=== PATIENT | male | born 1990 | race Caucasian/White ===

== ENCOUNTER 2023-11-10 17:03 | Emergency (ER) | payer OTHER, SELFPAY ==
--- NOTE | ~2023-11-10 | CT_ITS ---
EXAMINATION: CT head/brain wo IV con CLINICAL INFORMATION: Reason for Exam HTN, headache COMPARISON: None. TECHNIQUE: Contiguous axial imaging was performed from the skull base to vertex without intravenous contrast. Sagittal and coronal reformatted images were obtained. This CT examination was performed using dose optimization techniques as appropriate, variously including the following: * Automated exposure control * Adjustment of mA and/or kV according to patient size (this includes techniques or standardized protocols for targeted exams where dose is matched to indication/reason for exam; i.e. extremities or head) Use of iterative reconstruction technique DLP: 941.94 mGy-cm FINDINGS: No acute osseous or soft tissue abnormality. The mastoids are clear. Scattered mucosal thickening of the visualized paranasal sinuses, most prominently involving the right sphenoid sinus. There is no evidence of acute intracranial hemorrhage or territorial infarction. No abnormal mass effect or midline shift is seen. [place] to white matter differentiation is well preserved. No extra-axial fluid collections are identified. No hydrocephalus. No significant volume loss. There is no abnormal attenuation within the brain parenchyma. CT/CT head/brain wo IV con IMPRESSION: No acute intracranial abnormality including hemorrhage, mass effect, hydrocephalus, or acute territorial edematous infarction.
--- NOTE | ~2023-11-10 | XR_ITS ---
EXAMINATION: XR CHEST CLINICAL INFORMATION: Chest pain COMPARISON: None available. TECHNIQUE: 2 views of the chest were obtained. FINDINGS: No significant abnormality is noted involving the heart, lungs, mediastinum, bony thorax or soft tissues. XR/XR chest 2V IMPRESSION: Unremarkable examination.
[2023-11-10 17:35] VITALS: BP 181/115; PULSE 97; RESP 16; TEMP 37.2; O2SAT 95; BMI 47.5
--- NOTE | 2023-11-10 17:37 | ED_ITS ---
HPI - URI/Sore Throat General Chief Complaint: Upper Respiratory Symptoms Stated Complaint: referred by for chest xray, high BP Time Seen by Provider: 11/10/23 18:14 Source: patient, RN notes reviewed and old records reviewed Mode of arrival: ambulatory Limitations: no limitations History of Present Illness HPI Narrative: 33-year-old male with past medical history significant for insulin-dependent diabetes presents for evaluation of flu-like symptoms. He complains of headache, cough, congestion and left ear pain for the last 2 or 3 days He denies any sick contacts pain Denies any recent travel The patient reports he went to urgent care and they told him he had a left ear infection He was sent for a chest x-ray but ?when I got so I came here instead. ? Denies any leg swelling He is associated nausea without vomiting No other complaints or concerns at this time The patient's smokes both marijuana and tobacco Related Data Previous Rx's Medication Instructions Recorded albuterol sulfate 90 mcg/actuation 2 puff inhalation Q6H PRN 11/10/23 aerosol inhaler shortness of breath or wheezing #8.5 grams azithromycin 250 mg tablet See Rx Instructions PO .COMPLEX #6 11/10/23 tabs metformin 1,000 mg tablet 1,000 mg PO BID #60 tabs 11/10/23 Allergies Allergy/AdvReac Type Severity Reaction Status Date / Time No Known Allergies Allergy Verified 11/10/23 17:35 Review of Systems 2 Constitutional: Constitutional: Reports body ache(s), Denies chills, Denies fever(s) and Reports headache(s) Eyes: Eyes: Denies blurry vision ENT: Reports headache(s) and Denies sore throat Cardiovascular: Cardiovascular: Denies chest pain and Reports dyspnea Respiratory: Respiratory: Reports chest congestion, Reports cough and Reports dyspnea Gastrointestinal: Gastrointestinal: Reports abdominal pain, Denies diarrhea, Reports nausea and Denies vomiting Musculoskeletal: Musculoskeletal: Denies back pain Integumentary/Breasts: Skin/Breast: Denies rash Neurologic: Reports headache(s) PMF Social History Social History Smoked in Last 30 Days: No Use of substances other than those prescribed or required for medical reasons: Yes Substance Use Type: Marijuana Advance Directives: No Advance Directives Information Provided: No Physical Exam 2 Vital Signs: Vital Signs: Last Vital Signs Temp 97.8 F 03/27/24 20:48 Pulse 96 11/10/23 20:48 Resp 14 11/10/23 20:48 BP 144/80 H 11/10/23 20:48 Pulse Ox 96 11/10/23 20:48 O2 Del Method Room Air 11/10/23 20:48 BMI result Body Mass Index 47.5 Const: General: healthy appearing, comfortable, no acute distress, alert and awake Nutritional Appearance: well nourished Orientation/consciousness: p atient oriented x3 HEENT: Head: Yes normocephalic and Yes atraumatic Ears: TM's normal bilaterally and EAC's normal Eyes: Eyelids: Yes eyelids normal Conjunctivae: conjunctivae normal S clerae: sclerae normal Corneas: corneas normal Pupils: Equal, round and reactive pupils present EOM: EOMs intact bilaterally Neck: Neck: Yes full ROM Resp: Other: Diffuse expiratory wheeze Effort & Inspection: normal respiratory effort, able to speak in complete sentences and not labored Auscultation: not clear to auscultation bilaterally Cardio: Rate: regular rate Rhythm: regular rhythm GI: Inspection: No distended Palpation (GI): Soft to palpation, not firm, nontender, no guarding and not rigid Skin: General skin exam: elasticity normal Neuro: General: patient oriented x3 Cranial nerves: Yes Equal, round and reactive pupils present and Yes Bilaterally intact EOM present Cognition (Neuro): normal cognition Course Course Course Narrative: This is an RME: Additional HPI, ROS, PE not included below will be deferred to primary provider. This is a [id number], with a hx of diabetes, presenting to the emergency department with complaint of cough, congestion x 1 day. Patient reporting severe headache. Blood pressure elevated at 181/115, and 172/121. Patient is a diabetic, does not check his sugars at home. Plan: Labs, EKG, chest x-ray, viral swabs, CT head Reevaluation(s) Reevaluation #1: Feeling better after breathing treatment. His glucose improved to 45. His blood pressure improved to 144/80. The patient reports that he is supposed to be on metformin and insulin has been off them for 8 months since he was released from incarceration. He reports he will follow-up with his PCP calling tomorrow. I will refill his metformin for a month. We will treat his upper respiratory infection with azithromycin and albuterol inhaler. This will cover any otitis media though clinically I do not feel the patient has otitis media Time: 20:56 Medications Administered Discontinued Medications Generic Name Dose Route Start Last Admin Trade Name Cici PRN Reason Stop Dose Admin Albuterol Sulfate 7.5 mg/ 10 mg 11/10/23 19:55 11/10/23 20:05 Albuterol Sulfate 2.5 mg INHALE 11/10/23 19:56 10 mg ONCE ONE Administration Sodium Chloride 1,000 mls @ 999 mls/hr 11/10/23 19:15 11/10/23 19:39 Ns IV 11/10/23 20:15 999 mls/hr .Q1H1M MURPHY Administration Insulin Human Regular 5 unit 11/10/23 19:12 11/10/23 19:38 Insulin Regular, Human 100 Unit/Ml 3 Ml Vial IVPUSH 11/10/23 19:13 5 unit ONCE ONE Administration Medical Decision Making Medical Decision Making [facility] Narrative: 33-year-old male presents for evaluation of flu-like symptoms. He is not septic, plan for labs, chest x-ray, viral swabs to rule out pneumonia. He is wheezy on exam, his oxygen saturation is 90-94% on room air. Plan for bronchodilator protocol. Patient's glucose is elevated to 363 without evidence of DKA. CT scan of the head ordered in triage due to his complaints of headache. He has no neuro deficits Differential Diagnosis Differential Diagnoses: The differential diagnosis associated with the presentation includes Influenza Viral syndrome Pneumonia Bronchitis Otitis media Otitis externa Lab Data [facility] Lab Attestation statement: I reviewed the patient's lab results. No leukocytosis or anemia. Normal platelet count. No electrolyte abnormalities. Isolated hyperglycemia without evidence of DKA 11/10/23 18:45 11/10/23 18:45 Labs: Lab Results 11/10/23 11/10/23 11/10/23 Range/Units 18:45 18:47 18:48 WBC 6.3 (4.8-10.8) X10*3/uL RBC 5.40 (4.60-5.80) X10*6/uL Hgb 16.0 (14.0-18.0) g/dl Hct 45.9 (42.0-52.0) % MCV 85.0 (80.0-98.0) fL MCH 29.6 (27.0-33.0) pg MCHC 34.9 (31.0-36.0) g/dl RDW 12.6 (11.0-16.0) % Plt Count 265 (160-400) X10*3/uL MPV 11.0 (9.4-12.4) fL Immature Gran % (Auto) 0.2 (0.0-0.4) % Neut % (Auto) 56.2 (45-73) % Lymph % (Auto) 30.5 (20-40) % Treasure % (Auto) 8.3 (2-11) % Eos % (Auto) 4.0 (0-4) % Baso % (Auto) 0.8 (0-2) % Lymph # (Auto) 1.9 (1.2-4.9) X10*3/uL Treasure # (Auto) 0.5 (0.1-1.2) X10*3/uL Eos # (Auto) 0.3 (0.0-0.4) X10*3/uL Baso # (Auto) 0.1 (0.0-0.2) X10*3/uL Abs Immat Gran (auto) 0.01 (0.00-0.03) X10*3/uL Absolute Neuts (auto) 3.6 (2.0-8.3) x10*3/uL Absolute Nucleated RBC 0.000 (0.0-0.012) X10*3/uL Nucleated RBC % (auto) 0.0 (0.0-0.2) /100WBC VBG pH 7.42 (7.32-7.43) VBG pCO2 47 mmHg VBG pO2 58 mmHg VBG HCO3 31 H (22-26) mmol/L VBG O2 Saturation 90.0 % VBG Base Excess 5.5 mmol/L Sodium 135 (135-145) mmol/L Potassium 3.5 (3.3-5.1) mmol/L Chloride 100 (96-108) mmol/L Carbon Dioxide 26 (22-29) mmol/L Anion Gap 13 (12-20) BUN 10 (9-16) mg/dL Creatinine 0.76 (0.5-1.4) mg/dL Estim Creat Clear Calc 211.1 Estimated GFR > 60 POC Glucose 334 H (60-115) mg/dL Random Glucose 363 H* (60-115) mg/dL Calcium 9.3 (8.4-10.2) mg/dL Magnesium 1.9 (1.6-2.6) mg/dL Total Bilirubin 0.8 (0.0-1.0) mg/dL Direct Bilirubin 0.2 (0.0-0.5) mg/dL AST 9 (5-37) U/L ALT 13 (0-40) U/L Alkaline Phosphatase 40 (39-117) U/L Troponin I High Sens 3.6 (<3.5-35.0) ng/L Total Protein 6.7 (6.5-8.0) g/dL Albumin 3.7 (3.5-5.0) g/dL Lipase 9 (8-78) U/L Beta-Hydroxybutyrate 0.23 (0.02-0.27) mmol/L Influenza Type A (PCR) NEGATIVE (Negative) Influenza Type B (PCR) NEGATIVE (Negative) RSV RNA Qual (PCR) NEGATIVE (Negative) SARS-CoV-2 RNA (RT-PCR) NEGATIVE (Negative) 11/10/23 Range/Units 20:51 WBC (4.8-10.8) X10*3/uL RBC (4.60-5.80) X10*6/uL Hgb (14.0-18.0) g/dl Hct (42.0-52.0) % MCV (80.0-98.0) fL MCH (27.0-33.0) pg MCHC (31.0-36.0) g/dl RDW (11.0-16.0) % Plt Count (160-400) X10*3/uL MPV (9.4-12.4) fL Immature Gran % (Auto) (0.0-0.4) % Neut % (Auto) (45-73) % Lymph % (Auto) (20-40) % Treasure % (Auto) (2-11) % Eos % (Auto) (0-4) % Baso % (Auto) (0-2) % Lymph # (Auto) (1.2-4.9) X10*3/uL Treasure # (Auto) (0.1-1.2) X10*3/uL Eos # (Auto) (0.0-0.4) X10*3/uL Baso # (Auto) (0.0-0.2) X10*3/uL Abs Immat Gran (auto) (0.00-0.03) X10*3/uL Absolute Neuts (auto) (2.0-8.3) x10*3/uL Absolute Nucleated RBC (0.0-0.012) X10*3/uL Nucleated RBC % (auto) (0.0-0.2) /100WBC VBG pH (7.32-7.43) VBG pCO2 mmHg VBG pO2 mmHg VBG HCO3 (22-26) mmol/L VBG O2 Saturation % VBG Base Excess mmol/L Sodium (135-145) mmol/L Potassium (3.3-5.1) mmol/L Chloride (96-108) mmol/L Carbon Dioxide (22-29) mmol/L Anion Gap (12-20) BUN (9-16) mg/dL Creatinine (0.5-1.4) mg/dL Estim Creat Clear Calc Estimated GFR POC Glucose 245 H (60-115) mg/dL Random Glucose (60-115) mg/dL Calcium (8.4-10.2) mg/dL Magnesium (1.6-2.6) mg/dL Total Bilirubin (0.0-1.0) mg/dL Direct Bilirubin (0.0-0.5) mg/dL AST (5-37) U/L ALT (0-40) U/L Alkaline Phosphatase (39-117) U/L Troponin I High Sens (<3.5-35.0) ng/L Total Protein (6.5-8.0) g/dL Albumin (3.5-5.0) g/dL Lipase (8-78) U/L Beta-Hydroxybutyrate (0.02-0.27) mmol/L Influenza Type A (PCR) (Negative) Influenza Type B (PCR) (Negative) RSV RNA Qual (PCR) (Negative) SARS-CoV-2 RNA (RT-PCR) (Negative) Independent Interpretation I performed an independent interpretation of an: Plain X-Ray (No infiltrates, effusions or pneumothorax) and CT Scan (Agree with Radiology interpretation, no acute intracranial abnormality) Radiology Impression Discussion of test interpretation with radiology: I have reviewed the radiologist's reading. (CT brain no acute intracranial abnormality) Radiologist Impression: Chest x-ray is unremarkable Discharge Plan Discharge Clinical Impression: Upper respiratory infection, Acute hyperglycemia Patient Disposition: Home, Self-Care Instructions: Upper Respiratory Infection (ED), Diabetic Hyperglycemia (ED) Prescriptions: New azithromycin 250 mg tablet See Rx Instructions .ROUTE .COMPLEX Qty: 6 0RF Rx Instructions: For 250 mg dose pack: take 500 mg today (day 1), then 250 mg for 4 days (days 2-5) albuterol sulfate 90 mcg/actuation HFA aerosol inhaler 2 puff inhalation Q6H PRN (Reason: shortness of breath or wheezing) Qty: 8.5 0RF metformin 1,000 mg tablet 1,000 mg PO BID Qty: 60 0RF
--- NOTE | 2023-11-10 17:40 | ECG_ITS ---
Test Reason : COUGH Blood Pressure : / mmHG Vent. Rate : 082 BPM Atrial Rate : 082 BPM P-R Int : 168 ms QRS Dur : 104 ms QT Int : 384 ms P-R-T Axes : 029 -07 004 degrees QTc Int : 448 ms Normal sinus rhythm Normal ECG No previous ECGs available Referred By: Maureen Wayne Electronically Signed By:James Hernandez
[2023-11-10 17:41] VITALS: BP 172/121
[2023-11-10 18:06] VITALS: BP 157/111; PULSE 84; RESP 18; TEMP 37; O2SAT 95
[2023-11-10 18:49] LABS: MANUAL DIFF FLAG NO
[2023-11-10 18:52] LABS: Basophils Absolute Auto 0.1 X10*3/uL (0.0-0.2); Basophils Percent Auto 0.8 % (0-2); Eosinophils Absolute Auto 0.3 X10*3/uL (0.0-0.4); Hematocrit 45.9 % (42.0-52.0); Imm Gran Abs Auto 0.01 X10*3/uL (0.00-0.03); Imm Gran Pct Auto 0.2 % (0.0-0.4); Lymphocytes Absolute Auto 1.9 X10*3/uL (1.2-4.9); Lymphocytes Percent Auto 30.5 % (20-40); Mean Corpuscular HGB Conc 34.9 g/dl (31.0-36.0); Mean Corpuscular Hemoglobin 29.6 pg (27.0-33.0); Monocytes Absolute Auto 0.5 X10*3/uL (0.1-1.2); Monocytes Percent Auto 8.3 % (2-11); Neutrophils Absolute Auto 3.6 x10*3/uL (2.0-8.3); Neutrophils Percent Auto 56.2 % (45-73); Platelet Count 265 X10*3/uL (160-400); Red Cell Distribution Width 12.6 % (11.0-16.0); White Blood Count 6.3 X10*3/uL (4.8-10.8)
[2023-11-10 18:53] LABS: Glucose, Whole Blood 334 mg/dL (60-115)
[2023-11-10 18:54] LABS: VBG Base Excess 5.5 mmol/L; VBG HCO3 31 mmol/L (22-26); VBG pCO2 47 mmHg; VBG pH 7.42 (7.32-7.43); VBG pO2 58 mmHg
[2023-11-10 19:03] LABS: Venous Blood Gas Refer to POC result
[2023-11-10 19:11] LABS: Alanine Aminotransferase 13 U/L (0-40); Albumin Level 3.7 g/dL (3.5-5.0); Alkaline Phosphatase 40 U/L (39-117); Anion Gap 13 (12-20); Aspartate Amino Transferase 9 U/L (5-37); Bilirubin Direct 0.2 mg/dL (0.0-0.5); Bilirubin Total 0.8 mg/dL (0.0-1.0); Blood Urea Nitrogen 10 mg/dL (9-16); Calcium 9.3 mg/dL (8.4-10.2); Carbon Dioxide 26 mmol/L (22-29); Chloride 100 mmol/L (96-108); Creatinine Clr Calc Pharmacy 211.1; Estimated Glomerular Filt Rate > 60; Glucose Random 363 mg/dL (60-115); Lipase 9 U/L (8-78); Magnesium 1.9 mg/dL (1.6-2.6); Potassium 3.5 mmol/L (3.3-5.1); Sodium 135 mmol/L (135-145); Total Protein 6.7 g/dL (6.5-8.0)
[2023-11-10 19:13] LABS: Troponin-I High Sensitivity 3.6 ng/L (<3.5-35.0)
[2023-11-10 19:25] LABS: Beta-Hydroxybutyrate 0.23 mmol/L (0.02-0.27)
[2023-11-10 19:35] LABS: Influenza A PCR NEGATIVE (Negative); Influenza B PCR NEGATIVE (Negative); Resp Syncy Virus RNA Qual PCR NEGATIVE (Negative); SARS COV2 PCR INHOUSE NEGATIVE (Negative)
[2023-11-10] MEDS: Insulin Regular, Human 100 UNIT/ML 3 ML VIAL IVPUSH (19:38)
[2023-11-10] MEDS: 0.9 % Sodium Chloride 1,000 ML 999 ML IV (19:39)
[2023-11-10] MEDS: Albuterol Sulfate 7.5 MG, Albuterol Sulfate (0.083%) 2.5 MG 10 MG INHALE (20:05)
[2023-11-10 20:48] VITALS: BP 144/80; PULSE 96; RESP 14; TEMP 36.6; O2SAT 96
[2023-11-10 20:54] LABS: Glucose, Whole Blood 245 mg/dL (60-115)
--- NOTE | 2023-11-10 20:58 | PC.NURSE ---
this rn assumed care of pt @ 1900. pt calm and cooperative medicated according to mar disposition pending
--- NOTE | 2023-11-10 21:08 | PC.NURSE ---
pt partner present at bedside. iv removed prior to discharge pt calm and cooperative. pt provided with discharge packet pt verbalized understanding of discharge plan.
[2023-11-10 21:10] VITALS: BP 144/80; PULSE 96; RESP 14; TEMP 36.6; O2SAT 96
== END 2023-11-10 21:11 | disposition home or self-care (01) ==
PROVIDERS: Physician Assistant Medical; Emergency Provider Emergency Medicine
DX: R51.9 Headache, unspecified (principal); R05.9 Cough, unspecified; R09.81 Nasal congestion; H92.02 Otalgia, left ear; J06.9 Acute upper respiratory infection, unspecified; E11.65 Type 2 diabetes mellitus with hyperglycemia; Z79.4 Long term (current) use of insulin
CPT/HCPCS: 0241U; 36415; 70450; 71046; 80048; 80076; 82010; 82803; 82947; 83690; 83735; 84484; 85025; 93005; 96361; 96374; 99284

== ENCOUNTER → 2023-11-10 17:40 | Outpatient (BNV) | payer OTHER, SELFPAY | PROVIDERS: Emergency Provider Emergency Medicine; Visit Provider Internal Medicine Cardiovascular Disease | DX: R94.31 Abnormal electrocardiogram [ECG] [EKG] (principal) | CPT/HCPCS: 93010 ==

== ENCOUNTER 2024-02-05 13:02 | Emergency (ER) | payer OTHER, SELFPAY ==
[2024-02-05 13:04] VITALS: BP 185/111; PULSE 72; RESP 19; TEMP 36.6; O2SAT 99; BMI 45.7
--- NOTE | 2024-02-05 13:04 | ED.GENADULT ---
HPI - General Adult General Chief complaint: Dizziness Stated complaint: blurred vission headache Time Seen by Provider: 02/05/24 15:00 Source: patient and family Mode of arrival: ambulatory Limitations: no limitations History of Present Illness ED Provider: Bhavna Dorman APRN HPI narrative: 33 yo male with history of both diabetes and hypertension who has been non med compliant for over one year presents to the ER with blurry vision bilaterally and headache x 3 days. Took blood pressure at home and it was elevated. No chest pain, shortness of breath, vomiting, diarrhea, neck pain, neck stiffness, weakness /numbness / tingling of the upper lower extremities, dizziness. Patient reports he does not currently have a primary care doctor. Related Data Previous Rx's ?Medication ?Instructions ?Recorded albuterol sulfate 90 mcg/actuation 2 puff inhalation Q6H PRN 11/10/23 aerosol inhaler shortness of breath or wheezing #8.5 grams azithromycin 250 mg tablet See Rx Instructions PO .COMPLEX #6 11/10/23 tabs metformin 1,000 mg tablet 1,000 mg PO BID #60 tabs 11/10/23 Allergies Allergy/AdvReac Type Severity Reaction Status Date / Time No Known Allergies Allergy Verified 02/05/24 13:07 Review of Systems Review of Systems: Yes all other systems are reviewed and are negative Constitutional: Constitutional: Reports no additional constitutional complaints, Denies body ache(s), Denies chills, Denies fever(s), Reports headache(s) and Denies weakness Eyes: Eyes: Reports no additional eye complaints, Reports blurry vision and Denies change in vision ENT: Reports system reviewed and no additional complaints, except as documented, Denies dizziness, Reports headache(s), Denies nasal congestion, Denies nasal discharge and Denies neck pain Cardiovascular: Cardiovascular: Reports no additional cardiovascular complaints, Denies chest pain, Denies leg edema and Denies dyspnea Respiratory: Respiratory: Reports no additional respiratory complaints, Denies cough and Denies dyspnea Gastrointestinal: Gastrointestinal: Reports no additional gastrointestinal complaints, Denies abdominal pain, Denies diarrhea, Denies nausea and Denies vomiting Genitourinary: Genitourinary: Denies urinary incontinence Musculoskeletal: Musculoskeletal: Reports no additional musculoskeletal complaints, Denies back pain, Denies arthralgias, Denies joint swelling, Denies neck pain, Denies numbness and Denies tingling Integumentary/Breasts: Skin/Breast: Reports system reviewed and no additional complaints, except as docu and Denies rash Neurologic: Reports system reviewed and no additional complaints, except as documented, Denies Abnormal speech present, Denies dizziness, Reports headache(s), Denies numbness, Denies tingling and Denies weakness PMFSH Past Medical History Attestation statement: The following information was validated with the patient. Source: old records reviewed and nursing notes reviewed Social History Social History Substance Use Type: Marijuana Advance Directives: No Advance Directives Information Provided: No Physical Exam ED Vital Signs: Vital Signs - 24 hr 02/05/24 13:04 Temperature 98 F Pulse Rate 72 Respiratory Rate 19 Blood Pressure 185/111 H Pulse Oximetry 99 Oxygen Delivery Method Room Air BMI result Body Mass Index 45.7 Const General: cooperative, healthy appearing, comfortable and no acute distress Orientation/consciousness: patient oriented x3 Limitations: no limitations HENMT Head: Yes normal to inspection Ears: hearing grossly normal bilaterally General nose exam: Normal external nose present Face and sinus: Yes normal facial exam Mouth: Normal oral and palatal mucosa present Throat: Yes posterior oropharynx normal Eyes General: appearance normal, both eyes and all related structures Pupils: Equal, round and reactive pupils present Neck Neck: Yes normal visual inspection Chest Chest palpation & inspection: normal inspection of the chest Resp Effort & Inspection: normal respiratory effort Auscultation: clear to auscultation bilaterally Cardio Rate: regular rate Rhythm: regular rhythm Peripheral pulses: Peripheral pulses 2+ throughout GI Inspection: Yes normal to inspection Palpation (GI): Soft to palpation and nontender Auscultation: normal bowel sounds Back/Spine/Pelvis Thoracic/Lumbar Spine: thoracic and lumbar spine normal to inspection Skin General skin exam: no rashes or lesions noted Neuro General: patient oriented x3, moves all extremities, no focal motor deficits and normal sensation to monofilament Cranial nerves: Yes CN's II-XII intact bilaterally, Yes Equal, round and reactive pupils present, Yes Bilaterally intact EOM present, Yes Nystagmus not present, Yes Normal facial strength present and Yes Midline tongue present Cognition (Neuro): normal cognition Speech: No Abnormal speech present Gait exam (Neuro): Normal gait present Motor exam (neuro): 5/5 motor strength present throughout Sensory Exam: Normal double simultaneous stimulation for sensation Extrem General: Yes normal to inspection, Yes no pedal edema and Yes no calf tenderness Course Course Course Narrative: This is a rapid medical exam performed by Jaycee Malik NP: Additional HPI, ROS, PE not included below will be deferred to primary provider. Patient is a 33-year-old male with history of HTN not on medication presenting to the ED with 3 days of blurred vision, headache and high BP readings at home (170/120). BP in triage 185/111. Plan: EKG, labs, visual acuity Reevaluation(s) Reevaluation #1: about 15 minutes after I saw the patient he was noted to walk out of the emergency room with a steady gait with his partner. Patient eloped Medical Decision Making Medical Decision Making [facility] Narrative: 33 yo male with history of both diabetes and hypertension who has been non med compliant for over one year presents to the ER with blurry vision bilaterally and headache x 3 days. Took blood pressure at home and it was elevated. No chest pain, shortness of breath, vomiting, diarrhea, neck pain, neck stiffness, weakness /numbness / tingling of the upper lower extremities, dizziness. Patient reports he does not currently have a primary care doctor. The patient had an EKG and labs from triage. I did review these. His EKG is nonischemic however his labs show a blood sugar of 515 with no evidence of DKA. He is quite hypertensive with a blood pressure of 180/110. he has a nonfocal neurological exam. His other vitals are stable. I do believe his blurry vision and headache are secondary to his uncontrolled blood sugars and blood pressure. This is secondary to medication noncompliance. Explained to the patient that we will need to get additional labs, we may need additional imaging. We will need to place an IV and give him IV fluids, insulin and a oral antihypertensive. If his blood pressure and blood sugar improved he can be discharged home on oral medications of with assistance from social work to establish primary care. Differential Diagnosis Differential Diagnoses: The differential diagnosis associated with the presentation includes Hypertensive urgency, hyperglycemia secondary to medication noncompliance Admission/Observation Consideration of admission/observation: Escalation of care including admission/observation considered Lab Data [facility] Lab Attestation statement: I reviewed the patient's lab results. 02/05/24 13:24 02/05/24 13:24 Labs: Lab Results 02/05/24 02/05/24 Range/Units 13:24 13:27 WBC 6.9 (4.8-10.8) X10*3/uL RBC 5.12 (4.60-5.80) X10*6/uL Hgb 15.4 (14.0-18.0) g/dl Hct 43.8 (42.0-52.0) % MCV 85.5 (80.0-98.0) fL MCH 30.1 (27.0-33.0) pg MCHC 35.2 (31.0-36.0) g/dl RDW 12.6 (11.0-16.0) % Plt Count 240 (160-400) X10*3/uL MPV 11.3 (9.4-12.4) fL Immature Gran % (Auto) 0.3 (0.0-0.4) % Neut % (Auto) 56.4 (45-73) % Lymph % (Auto) 33.0 (20-40) % [place] % (Auto) 5.5 (2-11) % Eos % (Auto) 3.9 (0-4) % Baso % (Auto) 0.9 (0-2) % Lymph # (Auto) 2.3 (1.2-4.9) X10*3/uL [place]eves # (Auto) 0.4 (0.1-1.2) X10*3/uL Eos # (Auto) 0.3 (0.0-0.4) X10*3/uL Baso # (Auto) 0.1 (0.0-0.2) X10*3/uL Abs Immat Gran (auto) 0.02 (0.00-0.03) X10*3/uL Absolute Neuts (auto) 3.9 (2.0-8.3) x10*3/uL Absolute Nucleated RBC 0.000 (0.0-0.012) X10*3/uL Nucleated RBC % (auto) 0.0 (0.0-0.2) /100WBC PT 10.3 L (11.1-13.3) SEC INR 0.8 L (0.9-1.1) Sodium 135 (135-145) mmol/L Potassium 4.2 (3.3-5.1) mmol/L Chloride 99 (96-108) mmol/L Carbon Dioxide 27 (22-29) mmol/L Anion Gap 13 (12-20) BUN 10 (9-16) mg/dL Creatinine 0.91 (0.5-1.4) mg/dL Estim Creat Clear Calc 177.4 Estimated GFR > 60 Random Glucose 515 H* (60-115) mg/dL Calcium 8.9 (8.4-10.2) mg/dL Total Bilirubin 0.5 (0.0-1.0) mg/dL AST 8 (5-37) U/L ALT 12 (0-40) U/L Alkaline Phosphatase 63 (39-117) U/L Troponin I High Sens 2.9 (<3.5-35.0) ng/L Total Protein 6.1 L (6.5-8.0) g/dL Albumin 3.4 L (3.5-5.0) g/dL Urine Color Yellow Urine Appearance Clear Urine pH 6.5 (5.0-9.0) Ur Specific [place] >= 1.030 H (1.005-1.025) Urine Protein Negative (Neg-Trace) mg/dL Urine Glucose (UA) >=1000 H (Negative) mg/dL Urine Ketones Negative (Negative) mg/dL Urine Blood Negative (Negative) Urine Nitrite Negative (Negative) Ur Leukocyte Esterase Negative (Negative) Urine RBC 0-2 (0-2) /HPF Urine WBC 0-5 (0-5) /HPF Ur Squamous Epith Cells 0-2 (0-2) /HPF Urine Bacteria None Seen (None Seen) Hyaline Casts 0-2 (0-2) /LPF Independent Interpretation I performed an independent interpretation of an: EKG Interpretation: I independently viewed EKG which shows normal sinus rhythm with a rate of 67, normal HI, normal QRS, normal QT Independent Historian Clinical information obtained from an independent historian. History obtained from or confirmed by: Spouse Discharge Plan Discharge Clinical Impression: Acute hyperglycemia, Hypertension Patient Disposition: Left W/O Completing Treatment Prescriptions: No Action azithromycin 250 mg tablet See Rx Instructions .ROUTE .COMPLEX Qty: 6 0RF Rx Instructions: For 250 mg dose pack: take 500 mg today (day 1), then 250 mg for 4 days (days 2-5) albuterol sulfate 90 mcg/actuation HFA aerosol inhaler 2 puff inhalation Q6H PRN (Reason: shortness of breath or wheezing) Qty: 8.5 0RF metformin 1,000 mg tablet 1,000 mg PO BID Qty: 60 0RF Discharge Date/Time: 02/05/24 15:33
--- NOTE | 2024-02-05 13:06 | ECG_ITS ---
Test Reason : HIGH BP Blood Pressure : / mmHG Vent. Rate : 067 BPM Atrial Rate : 067 BPM P-R Int : 178 ms QRS Dur : 106 ms QT Int : 412 ms P-R-T Axes : 012 -21 -11 degrees QTc Int : 435 ms Normal sinus rhythm Normal ECG When compared with ECG of 10-NOV-2023 18:11, No significant change was found Referred By: Sue Malik Electronically Signed By:James Hernandez
[2024-02-05 13:31] LABS: MANUAL DIFF FLAG NO
[2024-02-05 13:33] LABS: Basophils Absolute Auto 0.1 X10*3/uL (0.0-0.2); Basophils Percent Auto 0.9 % (0-2); Eosinophils Absolute Auto 0.3 X10*3/uL (0.0-0.4); Eosinophils Percent Auto 3.9 % (0-4); Hematocrit 43.8 % (42.0-52.0); Hemoglobin 15.4 g/dl (14.0-18.0); Imm Gran Abs Auto 0.02 X10*3/uL (0.00-0.03); Imm Gran Pct Auto 0.3 % (0.0-0.4); Lymphocytes Absolute Auto 2.3 X10*3/uL (1.2-4.9); Mean Corpuscular HGB Conc 35.2 g/dl (31.0-36.0); Mean Corpuscular Hemoglobin 30.1 pg (27.0-33.0); Mean Corpuscular Volume 85.5 fL (80.0-98.0); Mean Platelet Volume 11.3 fL (9.4-12.4); Monocytes Absolute Auto 0.4 X10*3/uL (0.1-1.2); Monocytes Percent Auto 5.5 % (2-11); Neutrophils Absolute Auto 3.9 x10*3/uL (2.0-8.3); Neutrophils Percent Auto 56.4 % (45-73); Platelet Count 240 X10*3/uL (160-400); Red Blood Count 5.12 X10*6/uL (4.60-5.80); Red Cell Distribution Width 12.6 % (11.0-16.0); White Blood Count 6.9 X10*3/uL (4.8-10.8)
[2024-02-05 13:34] LABS: Appearance Urine Clear; Color Urine Yellow; Glucose Urine UA >=1000 mg/dL (Negative); Leukocyte Esterase Urine Negative (Negative); Nitrite Urine Negative (Negative); PH 6.5 (5.0-9.0); Specific Gravity - Urine >= 1.030 (1.005-1.025); UMIC TRIGGER UACC YES; Urine Blood Negative (Negative); Urine Ketones Negative (Negative); Urine Protein Negative (Neg-Trace)
[2024-02-05 13:43] LABS: INTERNATIONAL NORM RATIO 0.8 (0.9-1.1); Prothrombin Time 10.3 SEC (11.1-13.3)
[2024-02-05 13:43] LABS: Bacteria Urine None Seen (None Seen); Hyaline Casts Urine 0-2 /LPF (0-2); RBC Urine 0-2 /HPF (0-2); Squamous Epithelial Cell Urine 0-2 /HPF (0-2); WBC Urine 0-5 /HPF (0-5)
[2024-02-05 13:47] LABS: Anion Gap 13 (12-20); Blood Urea Nitrogen 10 mg/dL (9-16); Calcium 8.9 mg/dL (8.4-10.2); Carbon Dioxide 27 mmol/L (22-29); Chloride 99 mmol/L (96-108); Creatinine Clr Calc Pharmacy 177.4; Estimated Glomerular Filt Rate > 60; Potassium 4.2 mmol/L (3.3-5.1); Sodium 135 mmol/L (135-145)
[2024-02-05 13:48] LABS: Alanine Aminotransferase 12 U/L (0-40); Albumin Level 3.4 g/dL (3.5-5.0); Alkaline Phosphatase 63 U/L (39-117); Aspartate Amino Transferase 8 U/L (5-37); Bilirubin Total 0.5 mg/dL (0.0-1.0); Total Protein 6.1 g/dL (6.5-8.0)
[2024-02-05 13:54] LABS: Troponin-I High Sensitivity 2.9 ng/L (<3.5-35.0)
[2024-02-05 13:58] LABS: Glucose Random 515 mg/dL (60-115)
--- NOTE | 2024-02-05 15:33 | PC.NURSE ---
PT WAS SEEN LEAVING BUT DID NOT NOTIFY STAFF
--- NOTE | 2024-02-07 16:19 | PC.NURSE ---
Attempted to call patient regarding LWCT yesterday. Patient picked up the phone and said rohith, i introduced myself and phone call was disconnected. Attempted to call patient right back, it rang and went to voicemail. Left message for patient to call back. Patients lab value for blood glucose was greater than 500. Patient should follow up with PCP for management of this.
== END 2024-02-05 15:33 | disposition left against medical advice (07) ==
LOC: HO.ED 15:32
PROVIDERS: Registered Nurse Emergency; Emergency Provider Emergency Medicine
DX: E11.65 Type 2 diabetes mellitus with hyperglycemia (principal); I10 Essential (primary) hypertension; R51.9 Headache, unspecified
CPT/HCPCS: 36415; 80053; 81001; 84484; 85025; 85610; 93005; 99281; 99283

== ENCOUNTER → 2024-02-05 13:06 | Outpatient (BNV) | payer OTHER, SELFPAY | PROVIDERS: Emergency Provider Emergency Medicine; Visit Provider Internal Medicine Cardiovascular Disease | DX: I10 Essential (primary) hypertension (principal) | CPT/HCPCS: 93010 ==